=== PATIENT | male | born 1965 | race Caucasian/White ===

== ENCOUNTER 2019-10-10 09:43 | Emergency (ER) | payer OTHER ==
--- NOTE | 2019-10-10 12:09 | ED Physician Documentation ---
History of Present Illness - Stated complaint Stated Complaint: LAC ON CHIN - Chief complaint Chief Complaint: Laceration - History of Present Illness Timing: How many days ago (1) - Additonal information Additional information: 53-year-old male presents to the emergency department with plaint of a laceration to the underside of his left chin. Sustained yesterday when he was jumping on a boat slipped and hit his chin on the deck. He had no loss of consciousness. Patient reports that he thoroughly washed his wound with warm soap and water biotic ointment and gauze dressing. At this point the laceration is well approximated with a thin skin scabbing over it. He wonders if he should have it washed out and sutured. Tetanus is up-to-date last given 2014 Review of Systems Constitutional: denies: Fever, Chills Throat: denies: Dental pain / toothache, Oral lesions / sores, Sore throat Cardiac: denies: Chest pain / pressure, Palpitations Respiratory: denies: Dyspnea, Cough GI: denies: Abdominal Pain Skin: reports: Laceration (s) (left chin) Musculoskeletal: denies: Neck pain, Back pain Neurologic: denies: Generalized weakness, Focal weakness, Syncope, Seizure, Confused, Altered mental status, Head injury, LOC PD PAST MEDICAL HISTORY - Past Medical History Past Medical History: No Cardiovascular: High cholesterol Respiratory: None Neuro: None Endocrine/Autoimmune: None GI: None : None HEENT: None Psych: Depression Musculoskeletal: None Derm: None - Past Surgical History Past Surgical History: No - Present Medications Home Medications: Ambulatory Orders Medication Instructions Recorded Confirmed PARoxetine [Paxil] 20 mg PO DAILY 10/10/19 10/10/19 Simvastatin mg PO DAILY 10/10/19 - Allergies Allergies/Adverse Reactions: Allergies Allergy/AdvReac Type Severity Reaction Status Date / Time No Known Drug Allergies Allergy Verified 10/10/19 09:53 - Social History Does the pt smoke?: No Smoking Status: Never smoker Does the pt drink ETOH?: Yes ETOH Use: Liquor Does the pt have substance abuse?: No - Immunizations Immunizations are current?: Yes PD ED PE NORMAL - General General: Alert and oriented X 3, No acute distress, Well developed/nourished - HEENT HEENT: Atraumatic, EOMI, Ears normal, Pharynx benign, Dentition benign (No trismus with jaw opening. Able to open jaw fully without pain. No deformity or malocclusion), Other (1.5 cm laceration to the underside of left chin. Well approximated. Thin amount of scabbing over it. No surrounding erythema or induration.) - Neck Neck: Supple, no meningeal sign, No bony TTP - Cardiac Cardiac: RRR, No murmur - Respiratory Respiratory: No respiratory distress Results - Vitals Vitals: Vital Signs - 24 hr 10/10/19 10/10/19 09:53 11:33 Temperature 36.4 C L Heart Rate 63 59 L Respiratory 16 16 Rate Blood Pressure 116/66 135/84 H O2 Saturation 97 100 Oxygen O2 Source Room air PD MEDICAL DECISION MAKING - ED course Complexity details: d/w patient ED course: 53-year-old male presented to the emergency department with a 1.5 cm laceration to the underside of his left chin sustained 24 hours ago when he slipped on a boat deck. At this time the laceration is well approximated and closed. It appears to have been washed well and had antibiotic ointment placed over. I do not feel he would have a better cosmetic appearance if I were to reopen the wound and suture at this time. We discussed that the biggest risk for this gentleman is infection. He is to continue to wash it daily with warm soap and water and apply thin layer of antibiotic ointment. He is to return here for any concerns of infection. Departure - Departure Disposition: 01 Home, Self Care Clinical Impression: Laceration Record reviewed to determine appropriate education?: Yes Instructions: ED Laceration All Comments: Jesús the laceration on your chin is closed right now. It looks like he did a good job cleaning it out. I would continue to apply antibiotic ointment over it 2-3 times a day. The biggest risk for you is any development of infection. If you have increased redness, pain milky drainage or swelling surrounding the then please return for a second evaluation. Do not shave this area until the laceration is healed probably about 7 days
[2019-10-10 12:48] VITALS: BP 130/80
== END 2019-10-10 12:49 | disposition home or self-care (01) ==
LOC: ED 09:43
DX: S01.81XA Laceration without foreign body of other part of head, initial encounter (principal); W01.198A Fall on same level from slipping, tripping and stumbling with subsequent striking against other object, initial encounter; Y92.814 Boat as the place of occurrence of the external cause
CPT/HCPCS: 99281; 99282